=== PATIENT | female | born 1990 | race Two or more races ===

== ENCOUNTER 2017-06-17 16:36 | Emergency (ER) | payer SELFPAY ==
[~2017-06-17] VITALS: Ht 154.9 cm; Wt 83.2 kg
[2017-06-17 17:10] VITALS: Ht 154.9 cm; Wt 83.2 kg
--- NOTE | 2017-06-17 20:05 | ERD ---
ER Documentation Chief Complaint Chief Complaint pain with urination HPI 26-year-old female presents here to emergency department for complaints of pain upon urination, lower back pain that started yesterday. Patient is approximately 23 weeks , patient is dated is 10/03/2016, patient is complaining of pain with urination burning pain, succession scale, accompanied with lower back pain which is worse upon laying down. Patient denies any trauma in the back. Patient denies any vaginal bleeding. ROS All systems reviewed and are negative except as per history of present illness. Medications Home Meds Reported Medications [none] Unknown Strength No Conflict Check 06/17/17 Allergies Allergies: Coded Allergies: No Known Allergy (Unverified , 06/17/17) PMhx/Soc Medical and Surgical Hx: pt denies Medical Hx, pt denies Surgical Hx FmHx Family History: No coronary disease, No diabetes, No other Physical Exam Vitals Vital Signs Date Time Temp Pulse Resp B/P Pulse Ox O2 Delivery O2 Flow Rate FiO2 06/17/17 17:10 99.1 95 19 113/68 98 Physical Exam GENERAL: The patient is well developed and appropriate for usual state of health, in no apparent distress. CHEST: Clear to auscultation bilaterally. There are no rales, wheezes or rhonchi. HEART: Regular rate and rhythm. No murmurs, clicks, rubs or gallops. No S3 or S4. ABDOMEN: Soft, gravid abdomen noted. Good bowel sounds. No rebound or guarding. No gross peritonitis. No gross organomegaly or masses. No Miller sign or McBurney point tenderness. BACK: No midline/ flank tenderness. EXTREMITIES: Equal pulses bilaterally. There is no peripheral clubbing, cyanosis or edema. No focal swelling or erythema. Full range of motion. Grossly neurovascularly intact. NEURO: Alert and oriented. Cranial nerves 2-12 intact. Motor strength in all 4 extremities with 5/5 strength. Sensation grossly intact. Normal speech and gait. SKIN: There is no apparent rash or petechia. The skin is warm and dry. HEMATOLOGIC AND LYMPHATIC: There is no evidence of excessive bruising or lymphedema. No gross cervical, axillary, or inguinal lymphadenopathy. Procedures/MDM Medical decision making: Patient's dysuria can be from urinary tract infection , but patient has lower back pain and has been cleared to labor and delivery, patient was sent to OB triage, contacted nurse upstairs, spoke to kathleen Hoffman nurse and the patient will be evaluated in labor and delivery. Patient we brought upstairs for evaluation. Disposition: Home. Stable. Departure Diagnosis: Primary Impression: Dysuria Additional Impressions: Back pain Back pain location: low back pain Chronicity: acute Back pain laterality: bilateral Sciatica presence: without sciatica Qualified Code: M54.5 - Acute bilateral low back pain without sciatica Intrauterine Condition: Stable PRUDENCIO ALONSO NP Jun 17, 2017 20:05
[2017-06-17] MEDS ORDERED: PREN1TAB79 PO (21:26)
== END 2017-06-18 18:26 | disposition left against medical advice (07) ==
LOC: FTE 16:36
DX: O99.89 Other specified diseases and conditions complicating pregnancy, childbirth and the puerperium (principal); R30.0 Dysuria; M54.5 Low back pain; Z3A.23 23 weeks gestation of pregnancy
CPT/HCPCS: 99282

== ENCOUNTER 2017-06-17 20:25 | Outpatient (CLI) | payer MEDICAID ==
[~2017-06-17] VITALS: Ht 160 cm; Wt 83.0 kg
[2017-06-17] MEDS ORDERED: PREN1TAB79 PO (21:26)
[2017-06-17 21:27] VITALS: BP 110/70; PULSE 82; RESP 18; Ht 160 cm; Wt 83.0 kg
[2017-06-17 22:58] LABS: ADD UMIC YES; UR ASCORBIC ACID NEGATIVE (NEGATIVE); UR BACTERIA FEW /HPF (NONE SEEN); UR BILIRUBIN (Dip) NEGATIVE (NEGATIVE); UR BLOOD (Dip) 1+ mg/dL (NEGATIVE); UR CLARITY CLEAR (CLEAR); UR COLOR STRAW (YELLOW); UR GLUCOSE (Dip) NEGATIVE (NEGATIVE); UR KETONES (Dip) 1+ mg/dL (NEGATIVE); UR LEUKOCYTE ESTERASE (Dip) 3+ Leu/ul (NEGATIVE); UR NITRITE (Dip) NEGATIVE (NEGATIVE); UR RBC 4 /HPF (0-5); UR SPECIFIC GRAVITY (Dip) 1.006 (1.003-1.030); UR SQUAMOUS EPITHELIAL CELL FEW /HPF (FEW); UR TOTAL PROTEIN (Dip) NEGATIVE (NEGATIVE); UR UROBILINOGEN (Dip) NEGATIVE (NEGATIVE)
--- NOTE | 2017-06-18 00:43 | PN ---
Triage Information Date/Time June 17, 2017 Reason for visit: Dysuria Weeks of Gestation 24 weeks /Para Diabetes: none Hypertention: none Objective Vital Signs Date Time Temp Pulse Resp B/P Pulse Ox O2 Delivery O2 Flow Rate FiO2 06/17/17 21:27 98.4 82 18 110/70 Room Air Heart Rate: 140's Heart Rate Comments Tracing Appropriate for GA Contractions: None Results/Medications Results 24 hrs Laboratory Tests Test 06/17/17 20:40 Urine Color STRAW Urine Clarity CLEAR Urine pH 6.0 Urine Specific Thompson 1.006 Urine Ketones 1+ H Urine Nitrite NEGATIVE Urine Bilirubin NEGATIVE Urine Urobilinogen NEGATIVE Urine Leukocyte Esterase 3+ H Urine Microscopic RBC 4 Urine Microscopic WBC 36 H Urine Squamous Epithelial Cells FEW Urine Bacteria FEW A Urine Hemoglobin 1+ H Urine Glucose NEGATIVE Urine Total Protein NEGATIVE Disposition: Discharge Assessment/Plan UTI Keflex 500 mg PO QID x 7 days NATHAN RAZA MD Jun 18, 2017 00:43
--- NOTE | 2017-06-18 02:14 | TRIAGE ---
OB Triage Datetime Report Generated by CPN: 06/18/2017 02:14 Datetime: 06/17/2017 22:30 Labor Evaluation Frequency: x3 Monitor Mode: External Duration (sec)2399: 50-70 Quality: Mild Pattern: Normal: <= 5 Contractions in 10 Minutes Resting Tone [place]: Relaxed Datetime: 06/17/2017 21:30 Labor Evaluation Frequency: x7 Monitor Mode: External Duration (sec)2399: 40-70 Quality: Mild Pattern: Normal: <= 5 Contractions in 10 Minutes Resting Tone [place]: Relaxed Heart Rate FHR Baseline Rate: 145 Monitor Mode: External US Variability: Moderate 6-25 bpm Accelerations: 10X10 Decelerations: None Category: Category I Datetime: 06/17/2017 20:46 Stage of : OB Triage Assessment Type: Triage Maternal Assessment Level of Consciousness: Fully Conscious DTR's/Clonus: DTRs 2+; No Clonus Headache: Denies Blurred Vision: No Respiratory Effort: Unlabored; Regular Rhythm; Equal Expansion Breath Sounds, Left: Clear and Equal Breath Sounds, Right: Clear and Equal Nausea/Vomiting: Denies RUQ Epigastric Pain: Denies Lower Extremities Edema: None Degree: None Upper Extremities Edema: None Degree: None Facial Edema: None Temperature Route: Oral Fall Risk Assessment History of Falling: (0) No Secondary Diagnosis: (0) No Ambulatory Aid: (0) Bedrest/Nurse Assist IV Therapy: (0) No Gait: (0) Normal/Bedrest/Immobile Mental Status: (0) Oriented to Own Ability Fall Score: 0 Fall Risk Score Definition: No Risk: No action required Pain Assessment Pain Scale: 4 Pain Presence: Constant Pain Type: Cramping; Ache Pain Location: Back Datetime: 06/17/2017 20:42 Time of Arrival: 06/17/2017 20:15 EGA: 24.4 Arrived By: Wheelchair Arrived From: Home Chief Complaint: Constant back pain Movement: Present Contractions: Denies/Absent Rupture of Membranes: Denies Vaginal Bleeding: None Vaginal Discharge: Denies Recent Sexual Intercouse: Denies Abdominal Trauma: Not Applicable Patient Complaints: Back Pain Additional Patient Complaints: Burning and pain during urination Time Provider Notified: 06/17/2017 21:35 Provider Notified: Dr. Avalos Initial Plan: [facility]
== END 2017-06-17 23:22 | disposition home or self-care (01) ==
LOC: OBT 20:25 → L-D 20:29 → OBT 23:22
PROVIDERS: ATTEND Obstetrics & Gynecology
DX: O26.892 Other specified pregnancy related conditions, second trimester (principal); Z3A.24 24 weeks gestation of pregnancy; R30.0 Dysuria
CPT/HCPCS: 81001; Z7500; G0463

== ENCOUNTER 2017-10-03 05:02 | Inpatient (IN) | END 2017-10-06 13:10 | disposition home or self-care (01) | DRG 766 ==